=== PATIENT | male | born 1965 | race Caucasian/White ===

== ENCOUNTER 2021-04-30 18:36 | Emergency (ER) | payer OTHER ==
[~2021-04-30] VITALS: Ht 177.8 cm; Wt 61.2 kg
[2021-04-30 18:42] VITALS: BP 114/55
--- NOTE | 2021-04-30 18:46 | NUR ---
BIBA TO BED 7
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
--- NOTE | 2021-04-30 19:16 | NUR ---
Received report from Jordy LANTIGUA for continuity of care
--- NOTE | 2021-04-30 19:16 | NUR ---
REPORT GIVEN TO HAYLIE RN FOR CONTINUITY OF CARE
--- NOTE | 2021-04-30 19:29 | NUR ---
X-Ray at bedside.
--- NOTE | 2021-04-30 19:32 | NUR ---
Ying velez in EDM - 04/30/21 at 1935 by [email or web address] PATIENT INFORMED THAT RECEIVED TDAP VACCINATION [address] [facility] OR [facility]. PATIENT CANNOT RECALL WHICH HOSPITAL BUT KNOWS THAT HE HAS RECEIVED THE TDAP VACCINATION
--- NOTE | 2021-04-30 19:32 | NUR ---
PATIENT INFORMED THAT RECEIVED TDAP VACCINATION 2 WEEKS AGO AT [facility] OR [facility] PATIENT CANNOT RECALL WHICH HOSPITAL BUT KNOWS THAT HE HAS RECEIVED THE TDAP VACCINATION. SHEYLA MADE AWARE
--- NOTE | 2021-04-30 19:35 | NUR ---
XRAY AT BEDSIDE
[2021-04-30] MEDS ORDERED: ACET-2619 PO (20:10)
--- NOTE | 2021-04-30 20:57 | NUR ---
Patient discharged with v/s stable. Written and verbal after care instructions given and explained. Patient alert, oriented and verbalized understanding of instructions. Wheel Chair Assisted with steady gait. All questions addressed prior to discharge. ID band removed. Patient advised to follow up with PMD. Rx of tylenol given. Patient educated on indication of medication including possible reaction and side effects. Opportunity to ask questions provided and answered.
[2021-04-30 21:00] VITALS: BP 106/64
== END 2021-04-30 20:57 | disposition home or self-care (01) ==
LOC: MED 18:36
DX: S73.102A Unspecified sprain of left hip, initial encounter (principal); V09.20XA Pedestrian injured in traffic accident involving unspecified motor vehicles, initial encounter; Y93.89 Activity, other specified; Y92.89 Other specified places as the place of occurrence of the external cause; Y99.8 Other external cause status
CPT/HCPCS: 73502; 99283; Q0092